=== PATIENT | female | born 1980 ===

== ENCOUNTER 2018-11-14 22:25 | Emergency (ER) | payer SELFPAY ==
[2018-11-14 22:44] VITALS: BP 108/68; PULSE 65; RESP 20; TEMP 98; O2SAT 100
--- NOTE | 2018-11-14 22:51 | C.PDOC ---
History Of Present Illness Patient c/o right lower jaw pain x 2 days. She has been taking ibuprofen 800 mg without relief. She denies any fever, chills, facial swelling or trauma. Time Seen by Provider: 11/14/18 22:37 Chief Complaint (Nursing): Dental Pain History Per: Family History/Exam Limitations: no limitations Onset/Duration Of Symptoms: Days Current Symptoms Are (Timing): Still Present Severity: Severe Quality: Positive for: Dull, Aching Past Medical History Reviewed: Historical Data, Nursing Documentation, Vital Signs Vital Signs: Last Vital Signs Temp 98 F 11/14/18 22:34 Pulse 65 11/14/18 22:34 Resp 20 11/14/18 22:34 BP 108/68 11/14/18 22:34 Pulse Ox 100 11/14/18 22:34 Primary Care Provider: Non [facility] Provider, - Medical History PMH: No Chronic Diseases Family History: States: No Known Family Hx - Social History Hx Alcohol Use: No Hx Substance Use: No Review Of Systems Except As Marked, All Systems Reviewed And Found Negative. ENT: Positive for: Mouth Pain Physical Exam - Physical Exam Appears: Well, In Acute Distress (holding right side of jaw. ) Skin: Normal Color, Warm Head: Atraumatic, Normacephalic, No Swelling Eye(s): bilateral: Normal Inspection Ear(s): Bilateral: Normal Oral Mucosa: Moist Tongue: Normal Appearing, No Swelling Lips: Normal Appearing, No Swelling Teeth: Caries (cavity noted to right lower molar without gingival swelling.) Throat: Normal Neck: Normal, Normal ROM Neurological/Psych: Oriented x3, Normal Speech ED Course And Treatment O2 Sat by Pulse Oximetry: 100 Medical Decision Making Medical Decision Making: this patient does not appear to have a dental abscess at this time. she will find a dentist tomorrow. Disposition Counseled Patient/Family Regarding: Diagnosis, Need For Followup, Rx Given - Disposition Disposition: HOME/ ROUTINE Disposition Time: 22:57 Prescriptions: traMADol [Ultram] 50 mg PO BID PRN #10 tab PRN Reason: Pain, Severe (8-10) Instructions: Dental Pain (DC) Forms: Gen Discharge Inst Sinhala, [facility] (Sinhala) Print Language: FRENCH - Clinical Impression Clinical Impression: Toothache
== END 2018-11-14 23:03 | disposition home or self-care (01) ==
LOC: C.ER 22:25
DX: K08.89 Other specified disorders of teeth and supporting structures (principal)